=== PATIENT | female | born 1985 | race Caucasian/White ===

== ENCOUNTER 2019-06-18 13:24 | Emergency (ER) | payer BC ==
--- NOTE | 2019-06-18 15:11 | ER Document Report ---
ED Medical Screen (RME) - General Chief Complaint: Vaginal Bleeding Stated Complaint: ABNORMAL VAGINAL BLEEDING/CRAMPING Time Seen by Provider: 06/18/19 15:06 Mode of Arrival: Ambulatory Information source: Patient Notes: 34-year-old female presents to ED for complaint of vaginal bleeding and pelvic pain for about 2 months as well as back pain. She states it is been heavy at times and gets better than heavy then gets better but for the last 2 days it is been very heavy with a lot of clot. She states she is going through a tampon every hour for about 2 days. She states she has had a history of pelvic pain in the past where she had PID and had surgery to clean out the tube and then had to go back in and remove that tube she is also had a D&C for miscarriage ovarian cyst ruptures. She denies any smoking drinking or use of illicit drugs. She denies any symptoms of vaginal problems except for the bleeding. She is having pelvic cramping. She states she is not on any control at this time. has had a vasectomy I have greeted and performed a rapid initial assessment of this patient. A comprehensive ED assessment and evaluation of the patient, analysis of test results and completion of medical decision making process will be conducted by an additional ED providers. Physical Exam - Vital signs Vitals: Temp Pulse Resp BP Pulse Ox 97.8 F 70 18 132/86 H 100 06/18/19 14:21 06/18/19 14:21 06/18/19 14:21 06/18/19 14:21 06/18/19 14:21 Course - Vital Signs Vital signs: Temp Pulse Resp BP Pulse Ox 97.8 F 70 18 132/86 H 100 06/18/19 14:21 06/18/19 14:21 06/18/19 14:21 06/18/19 14:21 06/18/19 14:21
[2019-06-18 16:30] LABS: APPEARANCE,URINE SLIGHTLY-CLOUDY; BILIRUBIN,URINE NEGATIVE (NEGATIVE); COLOR,URINE RED; GLUCOSE, URINE NEGATIVE (NEGATIVE); KETONES,URINE NEGATIVE (NEGATIVE); PROTEIN,URINE 100 mg/dL (NEGATIVE); UROBILINOGEN,URINE NEGATIVE mg/dL (<2.0)
--- NOTE | 2019-06-18 18:17 | RADIOLOGY REPORT (SQ) ---
EXAM DESCRIPTION: U/S NON-OB PELVIS W/O DOP COMPLETED DATE/TIME: 06/18/2019 5:53 pm REASON FOR STUDY: Pelvic pain with vaginal bleeding worse x2 days COMPARISON: None. TECHNIQUE: Dynamic and static grayscale images acquired of the pelvis via transabdominal approach an d recorded on PACS. Additional selected color Doppler and spectral images recorded. LIMITATIONS: None. FINDINGS: UTERUS: The uterus measures 7.1 x 4.3 x 5.1 cm. The echotexture of the myometrium is homo geneous. ENDOMETRIAL STRIPE: The endometrium measures 6 mm in thickness and on Doppler there is flow within it . CERVIX: The cervix measures 2.1 cm in length. RIGHT OVARY AND DOPPLER: Unable to visualize the right ovary. There is no adnexal mass or free fluid . LEFT OVARY AND DOPPLER: The left ovary measures 5.8 x 3.2 x 4.1 cm. There is a cystic lesion in the left ovary that measures 4.5 x 2.9 x 3.3 cm. On Doppler there is intact arterial inflow within the o varian stroma. FREE FLUID: None noted. OTHER: No other finding. IMPRESSION: 1. Doppler flow within the endometrium. The finding is nonspecific and can occur in th e setting of endometritis, gestational trophoblastic disease, retained products of conception, and an uterine arteriovenous malformation. Correlation with beta HCG is recommended. 2. Nonvisualization of the right ovary. There is no adnexal mass. 3. Left ovarian cyst that measures 4.9 x 2.9 x 3.3 cm. No evidence of torsion on Doppler. TECHNICAL DOCUMENTATION: JOB ID: [id number] [employer]- All Rights Reserved Reading location - IP/workstation name: [email or web address]
[2019-06-18 19:19] LABS: ABSOLUTE BASOPHILS # (AUTO) 0.1 10^3/uL (0.0-0.2); ABSOLUTE EOSINOPHILS # (AUTO) 0.1 10^3/uL (0.0-0.6); ABSOLUTE LYMPHOCYTES (AUTO) 2.3 10^3/uL (0.5-4.7); ABSOLUTE MONOCYTES (AUTO) 0.5 10^3/uL (0.1-1.4); ABSOLUTE NEUT (AUTO) 2.9 10^3/uL (1.7-8.2); BASOPHILS % (AUTO) 0.9 % (0-2); EOSINOPHILS % (AUTO) 1.5 % (0-6); HEMATOCRIT 35.7 % (36.0-47.0); HEMOGLOBIN 12.6 g/dL (12.0-15.5); LYMPHOCYTES % (AUTO) 39.5 % (13-45); MEAN CORPUSCULAR HEMOGLOBIN 32.7 pg (27.0-33.4); MEAN CORPUSCULAR HGB CONC 35.3 g/dL (32.0-36.0); MEAN CORPUSCULAR VOLUME 93 fl (80-97); MONOCYTES % (AUTO) 8.2 % (3-13); PLATELET COUNT 344 10^3/uL (150-450); RED BLOOD COUNT 3.86 10^6/uL (3.72-5.28); RED CELL DISTRIBUTION WIDTH 12.8 % (11.5-14.0); SEGMENTED NEUTROPHILS % (AUTO) 49.9 % (42-78); TOTAL CELLS COUNTED % (AUTO) 100 %; WHITE BLOOD COUNT 5.9 10^3/uL (4.0-10.5)
[2019-06-18 19:37] LABS: ALBUMIN 4.1 g/dL (3.5-5.0); ALKALINE PHOSPHATASE 49 U/L (38-126); ANION GAP 8 (5-19); ASPARTATE AMINO TRANSFERASE 42 U/L (14-36); BILIRUBIN,DIRECT 0.1 mg/dL (0.0-0.4); BILIRUBIN,TOTAL 0.5 mg/dL (0.2-1.3); BLOOD UREA NITROGEN 12 mg/dL (7-20); CALCIUM 9.1 mg/dL (8.4-10.2); CARBON DIOXIDE 24 mmol/L (22-30); CHLORIDE 106 mmol/L (98-107); GLUCOSE 84 mg/dL (75-110); POTASSIUM 4.3 mmol/L (3.6-5.0); TOTAL PROTEIN 7.3 g/dL (6.3-8.2)
--- NOTE | 2019-06-18 20:14 | ER Document Report ---
ED General - General Chief Complaint: Vaginal Bleeding Stated Complaint: ABNORMAL VAGINAL BLEEDING/CRAMPING Time Seen by Provider: 06/18/19 15:06 Mode of Arrival: Ambulatory TRAVEL OUTSIDE OF THE [place] IN LAST 30 DAYS: No - HPI Notes: 34-year-old 1 AB 1 with no current primary care physician and on no prescription medications presents now with a 1 year history of intermittent dull pelvic pain. She is now more concerned because she is having some irregular vaginal bleeding. She says that her periods have been heavier than usual and she is passing clots intermittently. Patient reports past history of a D&C number years ago when she was 18 years old and had a spontaneous miscarriage. No other surgery. Patient treated for PID in the past. She denies fever, chills, dysuria or vaginal discharge at this time. - Related Data Allergies/Adverse Reactions: No Known Allergies Allergy (Unverified 06/18/19 20:38) Past Medical History - General Information source: Patient, Relative - Social History Smoking Status: Never Smoker Family History: Reviewed & Not Pertinent Patient has suicidal ideation: No Patient has homicidal ideation: No Review of Systems - Review of Systems Notes: Constitutional: Negative for fever. HENT: Negative for sore throat. Eyes: Negative for visual changes. Cardiovascular: Negative for chest pain. Respiratory: Negative for shortness of breath. Gastrointestinal: Negative for abdominal pain, vomiting or diarrhea. Genitourinary: Negative for dysuria. Musculoskeletal: Negative for back pain. Skin: Negative for rash. Neurological: Negative for headaches, weakness or numbness. 10 point ROS negative except as marked above and in HPI. Physical Exam - Vital signs Vitals: Temp Pulse Resp BP Pulse Ox 97.8 F 70 18 132/86 H 100 06/18/19 14:21 06/18/19 14:21 06/18/19 14:21 06/18/19 14:21 06/18/19 14:21 - Notes Notes: GENERAL: Well-developed well-nourished appearing in no acute distress. SKIN: Good turgor no rashes. HEAD: Normocephalic atraumatic. EYES: PERRLA. Conjunctivae and sclerae clear. EARS: CANALS AND TMS CLEAR. NOSE: CLEAR. MOUTH: Moist mucosa. Good dentition. No stridor or edema. No drooling. NECK: Supple. No masses or thyromegaly. No adenopathy. Carotids 2+ without bruits. No JVD. BACK: Symmetrical without tenderness. CHEST: Respirations unlabored. Breath sounds clear and symmetrical. HEART: Regular rhythm. No murmur gallop or rub. ABDOMEN: Soft nontender without masses, organomegaly or rebound. Bowel sounds normally active. No bruits. Pelvic: Normal external genitalia and hair distribution. Cervix is parous without lesions. Small amount of blood in vaginal vault. No cervical motion tenderness. Mild diffuse pelvic tenderness. Uterus is not enlarged to palpation and no palpable masses. EXTREMITIES: No edema. No calf tenderness. Cap refill less than 1.5 seconds. Dorsalis pedis and posterior tibial pulses 3+ and symmetrical. NEUROLOGICAL: GCS 15. Alert and oriented x3. Normal gait. Fluent speech. Cranial nerves II through XII intact. Sensorimotor and cerebellar normal. Normal tone. Course - Re-evaluation Re-evalutation: 06/18/19 20:13 hCG is negative. Pelvic ultrasound shows some nonspecific thickening of endometrium. Right ovary is surgically absent. There is a small cyst of the left ovary. Good blood flow to the left ovary on Doppler. White count normal. Hemoglobin normal. 06/18/19 20:32 Pelvic exam shows mild vaginal bleeding some mild diffuse tenderness with no other significant findings. Her vital signs are stable here she is afebrile. I taken cultures for her. I am going to give her a dose of IM Toradol and send her out on some indomethacin and Provera and refer her to a licensed occupational therapist for follow-up. She indicates she has not had a Pap smear in "many years". This will be needed as well as consideration of endometrial biopsy and I explained this to patient and her . - Vital Signs Vital signs: Temp Pulse Resp BP Pulse Ox 97.7 F 76 17 120/80 100 06/18/19 20:09 06/18/19 20:09 06/18/19 20:09 06/18/19 20:09 06/18/19 20:09 - Laboratory Result Diagrams: 06/18/19 18:54 06/18/19 18:54 Laboratory results interpreted by me: 06/18/19 06/18/19 06/18/19 15:48 18:54 18:54 Hct 35.7 L AST 42 H Urine Protein 100 H Urine Blood LARGE H Discharge - Discharge Clinical Impression: Dysfunctional uterine bleeding, Chronic pelvic pain in female Condition: Stable Disposition: HOME, SELF-CARE Additional Instructions: Dysfunctional Uterine Bleeding You're having an abnormal pattern of bleeding from the uterus. We call this dysfunctional uterine bleeding. It is most often caused by a hormone imbalance. Most often this is temporary and no cause is found. There's no evidence of , tumors, or infection as a cause. Dysfunctional uterine bleeding is especially common at times when the normal menstrual cycle is disturbed -- whether by recent , use of control pills or hormones, or impending menopause. Some medical problems lead to dysfunctional bleeding, such as obesity or being very underweight, stress, or thyroid problems. In many cases, the menstrual cycle will return to normal without any treatment. Where the bleeding is significant, high-dose estrogen will usually stop the bleeding within a day of two. A cycle or two of hormones ( control pills) can help restore the uterus to normal. In some patients where bleeding is severe or resistant to treatment, a D&C is required. A endometrial biopsy (a sample of the inside of the uterus) may be recommended for some older women. This would be done by a gynecology specialist. Treatment for anemia may be required if bleeding is severe. You should rest and avoid intercourse until the bleeding is controlled. Call the doctor or return for re-examination if you feel faint, have increasing pain, or have a major increase in the amount of bleeding. Return here as needed for new or worsening symptoms. Follow-up with referral licensed occupational therapist. Unable to work next 3 days. Prescriptions: Naproxen 500 mg PO BID PRN 7 Days #14 tablet PRN Reason: Medroxyprogesterone Acet [Provera 10 Mg Tablet] 10 mg PO DAILY #10 tablet Forms: Return to Work Referrals: ALONZO ZAPIEN MD [ACTIVE STAFF] - Follow up as needed
[2019-06-18] MEDS ORDERED: KETOROLAC TROMETHAMINE 60 MG/2 ML SDV IM ONE (20:30)
[2019-06-18 20:59] VITALS: BP 114/76
[2019-06-18 23:16] LABS: CHLAM PCR NOT DETECTED (NOT DETECT)
[2019-06-18 23:21] LABS: BACTERIA (WET MOUNT) 3+ BACTERIA SEEN; RBCS (WET MOUNT) 3+ RBCS SEEN; T.VAGINALIS (WET MOUNT) NO TRICHOMONAS SEEN; WBCS (WET MOUNT) RARE WBCS SEEN; YEAST (WET MOUNT) NO YEAST SEEN
== END 2019-06-18 21:03 | disposition home or self-care (01) ==
LOC: ER 13:24
DX: N93.8 Other specified abnormal uterine and vaginal bleeding (principal); N83.202 Unspecified ovarian cyst, left side; R10.2 Pelvic and perineal pain; G89.29 Other chronic pain; Z87.42 Personal history of other diseases of the female genital tract; R93.89 Abnormal findings on diagnostic imaging of other specified body structures; Z90.721 Acquired absence of ovaries, unilateral
CPT/HCPCS: 99284; 96372; 86900; 86901; 36415; 87210; 86850; 84703; 85025; 80053; 81001; 87491; 87591; 76856; J1885

== ENCOUNTER 2019-07-18 08:43 | Day surgery (SDC) | payer BC ==
[2019-07-17 10:42] LABS: HEMATOCRIT 38.3 % (36.0-47.0); HEMOGLOBIN 13.1 g/dL (12.0-15.5); MEAN CORPUSCULAR HEMOGLOBIN 32.1 pg (27.0-33.4); MEAN CORPUSCULAR HGB CONC 34.2 g/dL (32.0-36.0); MEAN CORPUSCULAR VOLUME 94 fl (80-97); PLATELET COUNT 278 10^3/uL (150-450); RED BLOOD COUNT 4.08 10^6/uL (3.72-5.28); RED CELL DISTRIBUTION WIDTH 12.8 % (11.5-14.0); WHITE BLOOD COUNT 6.1 10^3/uL (4.0-10.5)
[2019-07-17 10:53] LABS: APPEARANCE,URINE CLOUDY; BILIRUBIN,URINE NEGATIVE (NEGATIVE); COLOR,URINE YELLOW; GLUCOSE, URINE NEGATIVE (NEGATIVE); KETONES,URINE NEGATIVE (NEGATIVE); LEUKOCYTE ESTERASE,URINE LARGE (NEGATIVE); NITRITE,URINE POSITIVE (NEGATIVE); PROTEIN,URINE NEGATIVE (NEGATIVE); URINE SPECIFIC GRAVITY 1.016; UROBILINOGEN,URINE NEGATIVE mg/dL (<2.0)
[~2019-07-18 08:43] MED LIST: LACTATED RINGERS 1000 ML IV PRN; LIDOCAINE 0.5% INJ-PF (5 MG/ML) 50 ML SDV SUBCUT PRN
[2019-07-18] MEDS ORDERED: FENTANYL CITRATE INJ/PF 100 MCG/2 ML AMPUL ONE ×3 (10:54→12:26)
[2019-07-18] MEDS ORDERED: MIDAZOLAM 2 MG/2 ML INJ ONE (10:54)
[2019-07-18] MEDS ORDERED: PROPOFOL INJ 200 MG/20 ML VIAL IV ONE ×2 (10:54→11:48)
[2019-07-18] MEDS ORDERED: FENTANYL CITRATE INJ/PF 100 MCG/2 ML AMPUL IV PRN ×3 (11:19)
[2019-07-18] MEDS ORDERED: MORPHINE SULFATE 10 MG/ML INJ IV PRN (11:19)
[2019-07-18] MEDS ORDERED: MEPERIDINE HCL/PF INJ 25 MG/1 ML DISP.SYRIN IV PRN (11:19)
[2019-07-18] MEDS ORDERED: PROMETHAZINE HCL INJ 25 MG/1 ML VIAL IV PRN (11:19)
[2019-07-18] MEDS ORDERED: ONDANSETRON HCL INJ/PF 4 MG/2 ML SDV IV PRN (11:19)
[2019-07-18] MEDS ORDERED: DIPHENHYDRAMINE HCL 50 MG/ML VIAL IV PRN (11:19)
[2019-07-18] MEDS ORDERED: OXYCODONE-ACETAMINOPHEN 5-325 MG TABLET PO PRN ×4 (11:19→12:11)
[2019-07-18] MEDS ORDERED: LIDOCAINE 1%/EPINEPHRINE INJ 20 ML VIAL ONE (11:23)
[2019-07-18] MEDS ORDERED: KETOROLAC TROMETHAMINE INJ/PF 30 MG/1 ML SDV IV PRN (12:11)
[2019-07-18] MEDS ORDERED: IBUPROFEN 800 MG TABLET PO PRN (12:11)
[2019-07-18] MEDS ORDERED: RINGERS SOLUTION,LACTATED 1,000 ML IV PRN (12:11)
--- NOTE | 2019-07-18 12:16 | Operative Report ---
Operative Report DATE OF SURGERY: 07/18/19 PREOPERATIVE DIAGNOSIS: High-grade cervical dysplasia, heavy uterine bleeding POSTOPERATIVE DIAGNOSIS: Same OPERATION: Fractional D&C hysteroscopy with NovaSure ablation followed by a cold knife cervical cone SURGEON: CHADD MAXWELL ANESTHESIA: LMAC TISSUE REMOVED OR ALTERED: Cervical curettings uterine curettings and cone biopsy COMPLICATIONS: None ESTIMATED BLOOD LOSS: 20 cc INTRAOPERATIVE FINDINGS: Uterine cavity 4 cm in length and 3 cm in width PROCEDURE: Patient was taken the OR and placed under anesthesia. She was placed in dorsolithotomy position. Her vagina and perineum were prepared and draped in sterile fashion. Her bladder was drained with a red rubber catheter. A weighted speculum was placed in the anterior lip cervix was grasped with a tenaculum. The uterus sounded to 8 cm before and after the case. Endocervical curettings were obtained. The cervix was gently dilated. Hysteroscope was performed which revealed an empty uterine cavity. A sharp curettage was then performed. The NovaSure ablation was completed. The device was placed tested and fired without difficulty. At the end of the ablation well ablated endometrial cavity was noted. Next the cervix was grasped at 3 9:00. The cervix was infiltrated with a dilute solution of lidocaine with epinephrine. The cone biopsy was completed by incising with an 11 blade scalpel and then completing the cone with curved scissors. Angle sutures of 0 Vicryl were placed at 3 and 9:00. A running baseball stitch was placed around the circumference of the cervix. Hemostasis was good. All instruments were removed. She is placed back in supine position taken recovery room stable condition.
--- NOTE | 2019-07-18 12:19 | Discharge Summary ---
Discharge Summary (SDC) - Discharge Final Diagnosis: High-grade cervical dysplasia menorrhagia. Date of Surgery: 07/18/19 Discharge Date: 07/18/19 Condition: Good Forms: ASU Anesthesia D/C Instruction, Discharge POC-Surgical Service Prescriptions: Oxycodone HCl/Acetaminophen [Percocet 5-325 mg Tablet] 1 tab PO Q4HP PRN #20 tablet PRN Reason: Referrals: CHADD MAXWELL MD [ACTIVE STAFF] - Discharge Diet: Regular Discharge Activity: Balance Activity w/Rest, Pelvic Rest Report the Following to Your Physician Immediately: Fever over 101 Degrees, Unusual Bleeding
[2019-07-18] MEDS ORDERED: ACETAMINOPHEN 1,000 MG/100 ML RTUPB IV ONE (12:26)
[2019-07-18] MEDS ORDERED: DEXAMETHASONE SOD PHOSPHATE INJ 4 MG/1 ML VIAL ONE (12:34)
[2019-07-18] MEDS ORDERED: KETOROLAC TROMETHAMINE 60 MG/2 ML SDV ONE (12:34)
[2019-07-18] MEDS ORDERED: ONDANSETRON HCL INJ/PF 4 MG/2 ML SDV ONE (12:34)
[2019-07-18] MEDS ORDERED: OXYCODONE-ACETAMINOPHEN 5-325 MG TABLET ONE (13:06)
[2019-07-18 14:19] VITALS: BP 140/90
== END 2019-07-18 14:15 | disposition home or self-care (01) ==
LOC: OROUT 08:43
PROVIDERS: ATTEND Obstetrics & Gynecology
DX: D06.0 Carcinoma in situ of endocervix (principal); N92.0 Excessive and frequent menstruation with regular cycle; Z87.891 Personal history of nicotine dependence
CPT/HCPCS: 36415; 85027; 81025; 81001; 88305 ×2; 88307 ×2; 00952; 58563; 57520; J2250; J1100; J1885; J3010; J3490; J2405; J2704; J0131; 952

== ENCOUNTER 2019-09-13 05:15 | Day surgery (SDC) | payer BC ==
[2019-09-05 11:37] LABS: HEMATOCRIT 39.6 % (36.0-47.0); HEMOGLOBIN 13.5 g/dL (12.0-15.5); MEAN CORPUSCULAR HEMOGLOBIN 31.8 pg (27.0-33.4); MEAN CORPUSCULAR HGB CONC 34.2 g/dL (32.0-36.0); MEAN CORPUSCULAR VOLUME 93 fl (80-97); PLATELET COUNT 288 10^3/uL (150-450); RED BLOOD COUNT 4.26 10^6/uL (3.72-5.28); RED CELL DISTRIBUTION WIDTH 12.6 % (11.5-14.0); WHITE BLOOD COUNT 5.1 10^3/uL (4.0-10.5)
[2019-09-05 11:41] LABS: APPEARANCE,URINE CLOUDY; BILIRUBIN,URINE NEGATIVE (NEGATIVE); COLOR,URINE YELLOW; GLUCOSE, URINE NEGATIVE (NEGATIVE); KETONES,URINE NEGATIVE (NEGATIVE); LEUKOCYTE ESTERASE,URINE MODERATE (NEGATIVE); NITRITE,URINE POSITIVE (NEGATIVE); PROTEIN,URINE NEGATIVE (NEGATIVE); UROBILINOGEN,URINE NEGATIVE mg/dL (<2.0)
[2019-09-05 12:03] LABS: ALBUMIN 4.4 g/dL (3.5-5.0); ALKALINE PHOSPHATASE 53 U/L (38-126); ANION GAP 10 (5-19); ASPARTATE AMINO TRANSFERASE 59 U/L (14-36); BILIRUBIN,TOTAL 0.6 mg/dL (0.2-1.3); BLOOD UREA NITROGEN 14 mg/dL (7-20); CALCIUM 9.4 mg/dL (8.4-10.2); CARBON DIOXIDE 27 mmol/L (22-30); CHLORIDE 103 mmol/L (98-107); GLUCOSE 91 mg/dL (75-110); TOTAL PROTEIN 7.8 g/dL (6.3-8.2)
[2019-09-13] MEDS ORDERED: CEFAZOLIN INJ 1 GM VIAL ONE (06:29)
[2019-09-13] MEDS ORDERED: KETOROLAC TROMETHAMINE 60 MG/2 ML SDV ONE (07:12)
[2019-09-13] MEDS ORDERED: FENTANYL CITRATE INJ/PF 100 MCG/2 ML AMPUL ONE ×2 (07:12→11:32)
[2019-09-13] MEDS ORDERED: DEXAMETHASONE SOD PHOSPHATE INJ 4 MG/1 ML VIAL ONE (07:12)
[2019-09-13] MEDS ORDERED: ONDANSETRON HCL INJ/PF 4 MG/2 ML SDV ONE (07:12)
[2019-09-13] MEDS ORDERED: MIDAZOLAM 2 MG/2 ML INJ ONE (07:12)
[2019-09-13] MEDS ORDERED: MORPHINE SULFATE 10 MG/ML INJ ONE (07:12)
[2019-09-13] MEDS ORDERED: PROPOFOL INJ 200 MG/20 ML VIAL IV ONE (07:13)
[2019-09-13] MEDS ORDERED: MEPERIDINE HCL/PF INJ 25 MG/1 ML DISP.SYRIN IV PRN (09:16)
[2019-09-13] MEDS ORDERED: FENTANYL CITRATE INJ/PF 100 MCG/2 ML AMPUL IV PRN ×3 (09:16)
[2019-09-13] MEDS ORDERED: OXYCODONE-ACETAMINOPHEN 5-325 MG TABLET PO PRN ×4 (09:16→10:04)
[2019-09-13] MEDS ORDERED: MORPHINE SULFATE 10 MG/ML INJ IV PRN (09:16)
[2019-09-13] MEDS ORDERED: ONDANSETRON HCL INJ/PF 4 MG/2 ML SDV IV PRN (09:16)
[2019-09-13] MEDS ORDERED: DIPHENHYDRAMINE HCL 50 MG/ML VIAL IV PRN (09:16)
[2019-09-13] MEDS ORDERED: PROMETHAZINE HCL INJ 25 MG/1 ML VIAL IV PRN ×3 (09:16→10:04)
[2019-09-13] MEDS ORDERED: ACETAMINOPHEN 325 MG TABLET PO PRN (10:04)
[2019-09-13] MEDS ORDERED: SIMETHICONE 80 MG TAB.CHEW PO PRN (10:04)
[2019-09-13] MEDS ORDERED: ACETAMINOPHEN 1,000 MG/100 ML RTUPB IV PRN (10:04)
--- NOTE | 2019-09-13 10:16 | Operative Report ---
Operative Report DATE OF SURGERY: 09/13/19 PREOPERATIVE DIAGNOSIS: Severe dysplasia POSTOPERATIVE DIAGNOSIS: Same OPERATION: Da Lia hysterectomy and removal of left fallopian tube. SURGEON: CHADD MAXWELL ANESTHESIA: GA TISSUE REMOVED OR ALTERED: Cervix uterus and left fallopian tube COMPLICATIONS: None ESTIMATED BLOOD LOSS: 50 cc INTRAOPERATIVE FINDINGS: Thickened peritoneum consistent with the history of PID in the past. The ovaries appeared normal and were left in place. PROCEDURE: Patient was taken to the OR and placed in supine position. General anesthesia was induced. She is placed in a low dorsolithotomy position using Galileo stirrups. Her perineum vagina and abdomen were prepared and draped in a sterile fashion. A Laurent catheter was placed for drainage of the bladder. A speculum was placed in the vagina and the anterior lip cervix was grasped with a tenaculum. The uterus sounded to 7 cm and the cervix was dilated allowing a GlycoPure care uterine manipulator to be placed. The balloon was inflated. The large cup was used on the uterine manipulator. The speculum was removed from the vagina. An incision was made at the umbilicus. The natural umbilical defect was identified and dilated with Rosina clamp allowing a blunt port to be placed. Laparoscopy confirmed appropriate placement. The balloon on the port was inflated to keep it in place. Lateral ports were placed under laparoscopic visualization and an insufflation port was placed in the right lower quadrant. This was also under laparoscopic visualization. Next the patient was placed in a steep Trendelenburg. The robot was brought to the patient and docked. The hysterectomy was then started. The left fallopian tube was grasped and removed with the endoscopic yi. The tube was passed off the field. The round ligaments were then cauterized with bipolar cautery and cut with monopolar cautery. The anterior leaf of the broad ligament was incised creating a bladder flap. The utero ovarian pedicles were cauterized with bipolar cautery and cut with monopolar yi. Staying directly next to the uterus the broad ligament was cauterized with bipolar cautery and cut with monopolar yi bilaterally. The uterine arteries likewise were cauterized with bipolar cautery and cut with monopolar yi staying directly next to the uterus. The cardinal ligaments also were cauterized with bipolar cautery and cut with monopolar yi staying directly next to the uterus. During this whole procedure the uterus was elevated in the pelvis with the V care manipulator to keep the ureters out of the operative field. Upon reaching the vaginal cuff a circumferential incision was made at the cup and the uterus was removed through the vagina. The endoscopic yi were replaced with a needle taxi truck driver and a V lock suture was used to close the vaginal cuff. The first stitch was placed at the right angle incorporating anterior vaginal mucosa lateral vaginal sidewall and posterior vaginal mucosa. A running stitch was then carried across the cuff to the left side where once again anterior vaginal coasted lateral vaginal sidewall and posterior vaginal mucosa was incorporated into the suture. Several sutures were taken back medially and the stitch was cut and the needle passed off the field. Hemostasis was good. The pelvis was irrigated and suctioned free of fluid. Each pedicle was inspected for hemostasis. The ureters could be seen in the pelvis peristalsing bilaterally and were normal in size. The robot was undocked from the patient. Next laparoscopically I once again checked the pedicles with the patient out of steep Trendelenburg. Hemostasis was good. Each port was then removed under laparoscopic visualization. The gas was allowed to escape the abdomen and the umbilical port and scope were removed at the same time. The fascia at the umbilicus was closed with a 2-0 Vicryl stitch and the skin at all 4 sites closed with a 4-0 undyed Vicryl stitch. The wounds were dressed. Patient was placed back in supine position brought out of anesthesia and taken to recovery room in stable condition.
[2019-09-13] MEDS ORDERED: ACETAMINOPHEN 1,000 MG/100 ML RTUPB IV ONE ×2 (10:23→11:00)
[2019-09-13] MEDS: HYDROMORPHONE HCL INJ/PF 2 MG/ML AMPULE ONE ×3 (10:25→10:50)
[2019-09-13] MEDS ORDERED: HYDROMORPHONE HCL INJ/PF 2 MG/ML AMPULE IV SCH (10:30)
[2019-09-13] MEDS ORDERED: ROCURONIUM BROMIDE INJ 50 MG/5 ML VIAL IV ONE (10:40)
[2019-09-13] MEDS ORDERED: NEOSTIGMINE METHYLSULFATE 10 MG/10 ML VIAL ONE (10:40)
[2019-09-13] MEDS ORDERED: SUCCINYLCHOLINE CHLORIDE INJ 200 MG/10 ML VIAL ONE (10:40)
[2019-09-13] MEDS ORDERED: GLYCOPYRROLATE 1 MG/5 ML VIAL ONE (10:40)
[2019-09-13] MEDS ORDERED: KETOROLAC TROMETHAMINE INJ/PF 30 MG/1 ML SDV ONE (11:31)
[2019-09-13] MEDS: KETOROLAC TROMETHAMINE INJ/PF 30 MG/1 ML SDV IV SCH ×2 (13:26→22:13)
[2019-09-13] MEDS: HYDROMORPHONE HCL INJ/PF 2 MG/ML AMPULE IV PRN ×2 (14:18→17:30)
[2019-09-13 15:41] LABS: HEMATOCRIT 36.3 % (36.0-47.0); HEMOGLOBIN 12.9 g/dL (12.0-15.5); MEAN CORPUSCULAR HEMOGLOBIN 32.8 pg (27.0-33.4); MEAN CORPUSCULAR HGB CONC 35.6 g/dL (32.0-36.0); MEAN CORPUSCULAR VOLUME 92 fl (80-97); PLATELET COUNT 268 10^3/uL (150-450); RED BLOOD COUNT 3.94 10^6/uL (3.72-5.28); RED CELL DISTRIBUTION WIDTH 12.8 % (11.5-14.0); WHITE BLOOD COUNT 12.2 10^3/uL (4.0-10.5)
[2019-09-13] MEDS: RINGERS SOLUTION,LACTATED 1,000 ML IV PRN (15:58)
[2019-09-13 16:00] LABS: ANION GAP 10 (5-19); BLOOD UREA NITROGEN 11 mg/dL (7-20); CALCIUM 8.9 mg/dL (8.4-10.2); CARBON DIOXIDE 23 mmol/L (22-30); CHLORIDE 102 mmol/L (98-107); GLUCOSE 121 mg/dL (75-110); POTASSIUM 4.5 mmol/L (3.6-5.0)
[2019-09-13] MEDS ORDERED: DOCUSATE SODIUM 100 MG CAPSULE PO SCH (18:00)
[2019-09-14] MEDS: RINGERS SOLUTION,LACTATED 1,000 ML IV PRN (00:08)
[2019-09-14] MEDS: HYDROMORPHONE HCL INJ/PF 2 MG/ML AMPULE IV PRN ×2 (00:08→06:15)
[2019-09-14] MEDS: KETOROLAC TROMETHAMINE INJ/PF 30 MG/1 ML SDV IV SCH (05:07)
[2019-09-14 07:02] LABS: HEMATOCRIT 35.1 % (36.0-47.0); HEMOGLOBIN 12.4 g/dL (12.0-15.5); MEAN CORPUSCULAR HEMOGLOBIN 32.8 pg (27.0-33.4); MEAN CORPUSCULAR HGB CONC 35.3 g/dL (32.0-36.0); MEAN CORPUSCULAR VOLUME 93 fl (80-97); PLATELET COUNT 281 10^3/uL (150-450); RED BLOOD COUNT 3.78 10^6/uL (3.72-5.28); RED CELL DISTRIBUTION WIDTH 12.8 % (11.5-14.0); WHITE BLOOD COUNT 10.7 10^3/uL (4.0-10.5)
[2019-09-14 07:31] LABS: ANION GAP 7 (5-19); BLOOD UREA NITROGEN 9 mg/dL (7-20); CARBON DIOXIDE 25 mmol/L (22-30); CHLORIDE 102 mmol/L (98-107); GLUCOSE 94 mg/dL (75-110); POTASSIUM 4.2 mmol/L (3.6-5.0)
--- NOTE | 2019-09-14 08:10 | PDOC DISCHARGE SUMMARY ---
Impression - Admit/DC Date/PCP Admission Date/Primary Care Provider: LOLI CONROY MD Discharge Date: 09/14/19 - Assessment Summary: She underwent a robotic hysterectomy yesterday. She did well overnight and is ready to go home today. She is ambulating and tolerating a regular diet. Oral pain medication is controlling her pain. She is alert oriented and appropriate. Her abdomen is soft with normal incisional tenderness. Her extremities are nontender. Home today with followup in one week. - Additional Information Resuscitation Status: Full Code Discharge Diet: As Tolerated Discharge Activity: No Lifting Over 10 Pounds, Pelvic Rest Referrals: LOLI CONROY MD [Primary Care Provider] - Prescriptions: Oxycodone HCl/Acetaminophen [Percocet 5-325 mg Tablet] 1 tab PO Q4HP PRN 7 Days #30 tablet PRN Reason: Home Medications: Oxycodone HCl/Acetaminophen [Percocet 5-325 mg Tablet] 1 tab PO Q4HP PRN 7 Days #30 tablet 09/14/19 Additional Information: Followup in one week History of Present Illiness History of Present Illness: HOLLIE ENRIQUE is a 34 year old female Physical Exam - Physical Exam Vital Signs: Temp Pulse Resp BP Pulse Ox 97.8 F 76 16 115/69 97 09/14/19 04:59 09/14/19 04:59 09/14/19 04:59 09/14/19 04:59 09/14/19 04:59 Intake & Output 09/13/19 09/14/19 09/15/19 06:59 06:59 06:59 Intake Total 0 3590 Output Total 2205 Balance 0 1385 Weight 80.29 kg Results Laboratory Results: WBC 10.7 10^3/uL (4.0-10.5) H 09/14/19 06:47 RBC 3.78 10^6/uL (3.72-5.28) 09/14/19 06:47 Hgb 12.4 g/dL (12.0-15.5) 09/14/19 06:47 Hct 35.1 % (36.0-47.0) L 09/14/19 06:47 MCV 93 fl (80-97) 09/14/19 06:47 MCH 32.8 pg (27.0-33.4) 09/14/19 06:47 MCHC 35.3 g/dL (32.0-36.0) 09/14/19 06:47 RDW 12.8 % (11.5-14.0) 09/14/19 06:47 Plt Count 281 10^3/uL (150-450) 09/14/19 06:47 Sodium 134.3 mmol/L (137-145) L 09/14/19 06:47 Potassium 4.2 mmol/L (3.6-5.0) 09/14/19 06:47 Chloride 102 mmol/L (98-107) 09/14/19 06:47 Carbon Dioxide 25 mmol/L (22-30) 09/14/19 06:47 Anion Gap 7 (5-19) 09/14/19 06:47 BUN 9 mg/dL (7-20) 09/14/19 06:47 Creatinine 0.65 mg/dL (0.52-1.25) 09/14/19 06:47 Est GFR ( Amer) > 60 (>60) 09/14/19 06:47 Est GFR (MDRD) Non-Af > 60 (>60) 09/14/19 06:47 Glucose 94 mg/dL (75-110) 09/14/19 06:47 Calcium 9.0 mg/dL (8.4-10.2) 09/14/19 06:47 Total Bilirubin 0.6 mg/dL (0.2-1.3) 09/05/19 10:53 Direct Bilirubin 0.0 mg/dL (0.0-0.4) 09/05/19 10:53 Neonat Total Bilirubin Not Reportable 09/05/19 10:53 Neonat Direct Bilirubin Not Reportable 09/05/19 10:53 Neonat Indirect Bili Not Reportable 09/05/19 10:53 AST 59 U/L (14-36) H 09/05/19 10:53 ALT 80 U/L (<35) H 09/05/19 10:53 Alkaline Phosphatase 53 U/L (38-126) 09/05/19 10:53 Total Protein 7.8 g/dL (6.3-8.2) 09/05/19 10:53 Albumin 4.4 g/dL (3.5-5.0) 09/05/19 10:53 Urine Color YELLOW 09/05/19 10:50 Urine Appearance CLOUDY 09/05/19 10:50 Urine pH 6.0 (5.0-9.0) 09/05/19 10:50 Ur Specific Elton 1.020 09/05/19 10:50 Urine Protein NEGATIVE mg/dL (NEGATIVE) 09/05/19 10:50 Urine Glucose (UA) NEGATIVE mg/dL (NEGATIVE) 09/05/19 10:50 Urine Ketones NEGATIVE mg/dL (NEGATIVE) 09/05/19 10:50 Urine Blood NEGATIVE (NEGATIVE) 09/05/19 10:50 Urine Nitrite POSITIVE (NEGATIVE) H 09/05/19 10:50 Urine Bilirubin NEGATIVE (NEGATIVE) 09/05/19 10:50 Urine Urobilinogen NEGATIVE mg/dL (<2.0) 09/05/19 10:50 Ur Leukocyte Esterase MODERATE (NEGATIVE) H 09/05/19 10:50 Urine WBC (Auto) 20 /HPF 09/05/19 10:50 Urine RBC (Auto) 4 /HPF 09/05/19 10:50 U Hyaline Cast (Auto) 1 /LPF 09/05/19 10:50 Urine Bacteria (Auto) 2+ /HPF 09/05/19 10:50 Squamous Epi Cells Auto 6 /HPF 09/05/19 10:50 Urine Mucus (Auto) OCC /LPF 09/05/19 10:50 Urine Ascorbic Acid NEGATIVE (NEGATIVE) 09/05/19 10:50 Urine HCG, Qual NEGATIVE (NEGATIVE) 09/13/19 05:24 Blood Type A POSITIVE 09/11/19 11:35 Antibody Screen NEGATIVE 09/11/19 11:35 Stroke Is this a Stroke Patient?: No Acute Heart Failure - Is this a Heart Failure Patient?: No
[2019-09-14 10:07] VITALS: BP 121/63
[2019-09-14] MEDS ORDERED: IBUPROFEN 800 MG TABLET PO SCH (12:00)
== END 2019-09-14 10:27 | disposition home or self-care (01) ==
LOC: OROUT 05:15 → 2S 12:20 → OROUT 09-14 10:27
PROVIDERS: ATTEND Obstetrics & Gynecology
DX: D06.9 Carcinoma in situ of cervix, unspecified (principal); N93.8 Other specified abnormal uterine and vaginal bleeding; Z87.891 Personal history of nicotine dependence
CPT/HCPCS: 58571; S2900; 36415; 80048; 80053; 81001; 81025; 840; 85027; 86850; 86900; 86901; 88307; 94799; J0131; J0330; J0690; J1100; J1170; J1885; J2250; J2270; J2405; J2550; J2704; J2710; J3010; J3490; J7120